=== PATIENT | male | born 1945 ===

== ENCOUNTER 2024-05-15 17:28 | Inpatient (IN) | payer MEDICARE, MEDICAID ==
[~2024-05-15] VITALS: Ht 154.9 cm; Wt 95.8 kg
[2024-05-15 17:53] LABS: BASOPHILS % (AUTO) 0.5 % (0.0-2.0); EOSINOPHILS % (AUTO) 1.4 % (1.0-6.0); HEMATOCRIT 43.1 % (41-53); HEMOGLOBIN 14.1 g/dL (13.5-17.5); LYMPHOCYTES % (AUTO) 16.3 % (22.0-44.0); MEAN CORPUSCULAR HEMOGLOBIN 28.9 pg (26.0-34.0); MEAN CORPUSCULAR HGB CONC 32.6 G/dL (31.0-37.0); MEAN CORPUSCULAR VOLUME 88 fL (80-100); MONOCYTES # (AUTO) 0.5 K/uL (0.1-1.0); MONOCYTES % (AUTO) 8.5 % (2.0-9.0); NEUTROPHILS # (AUTO) 4.6 K/uL (1.8-7.7); NEUTROPHILS % (AUTO) 73.3 % (40.0-70.0); PLATELET COUNT (AUTO) 182 K/uL (150-450); RED BLOOD CELL COUNT(AUTO) 4.87 MIL/uL (4.50-5.90); RED CELL DISTRIBUTION WIDTH 17.5 % (11.5-14.5); WHITE BLOOD COUNT (AUTO) 6.3 K/uL (4.5-11.0)
[2024-05-15] MEDS ORDERED: OMEP20 PO (18:03)
[2024-05-15] MEDS ORDERED: FLUO-342 PO (18:03)
[2024-05-15] MEDS ORDERED: NYST30CR9 TP (18:03)
[2024-05-15] MEDS ORDERED: SODI100067 PO (18:03)
[2024-05-15] MEDS ORDERED: SPIR-37 PO (18:03)
[2024-05-15] MEDS ORDERED: DEXT38GE12 PO (18:03)
[2024-05-15] MEDS ORDERED: FLUT1BLS12 IH (18:03)
[2024-05-15] MEDS ORDERED: TAMS0.4C94 PO (18:03)
[2024-05-15] MEDS ORDERED: TIOT185 IH (18:03)
[2024-05-15] MEDS ORDERED: NA P133E4 PR (18:03)
[2024-05-15] MEDS ORDERED: METF-1211 PO (18:03)
[2024-05-15 18:09] LABS: ANION GAP 2 mmol/L (8-16); CARBON DIOXIDE 34 mmol/L (22-29); CHLORIDE 98 mmol/L (98-107); CREATININE 1.48 mg/dL (0.60-1.30); GLOMERULAR FILTR. RATE CALC 46 mL/min (>60); GLUCOSE,RANDOM 119 mg/dL (70-110); POTASSIUM 4.8 mmol/L (3.5-5.1); SODIUM SERUM 134 mmol/L (136-145); UREA NITROGEN, BLOOD 38 mg/dL (7-18)
[2024-05-15 18:14] LABS: ALCOHOL, BLOOD (SERUM) < 3 mg/dL (0-10)
[2024-05-15 18:40] LABS: CALCIUM, TOTAL 9.1 mg/dL (8.8-10.5)
[2024-05-15 19:49] LABS: APPEARANCE,URINE CLEAR (CLEAR); BILIRUBIN,URINE NEGATIVE (NEGATIVE); COLOR,URINE LIGHT YELLOW (YELLOW); GLUCOSE, URINE (UA) NEGATIVE (NEGATIVE); KETONES,URINE NEGATIVE (NEGATIVE); LEUKOCYTE ESTERASE ,URINE NEGATIVE (NEGATIVE); NITRATE,URINE NEGATIVE (NEGATIVE); OCCULT BLOOD,URINE NEGATIVE (NEGATIVE); PROTEIN,URINE NEGATIVE (NEGATIVE); SPECIFIC GRAVITIY, URINE 1.014 (1.003-1.030); UROBILINOGEN,URINE <=1.0 mg/dL (<=1.0)
[2024-05-15 19:55] LABS: AMPHET/METH SCREEN,URINE NEGATIVE (NEGATIVE); BARBITURATE SCREEN, URINE NEGATIVE (NEGATIVE); BENZODIAZEPINES SCREEN,URINE NEGATIVE (NEGATIVE); CANNABINOID SCREEN,URINE NEGATIVE (NEGATIVE); COCAINE SCREEN,URINE NEGATIVE (NEGATIVE); METHADONE SCREEN, URINE NEGATIVE (NEGATIVE); OPIATE SCREEN,URINE NEGATIVE (NEGATIVE); PHENCYCLIDINE SCREEN,URINE NEGATIVE (NEGATIVE)
[2024-05-15 20:01] LABS: ALCOHOL, URINE DRUG SCREEN NEGATIVE (NEGATIVE)
[2024-05-15 21:06] LABS: GLUCOMETER DEV NAME(LOC) ER.7; GLUCOSE,POINT OF CARE 123 MG/DL (70-110)
[2024-05-15] MEDS: LORazepam 2 MG TABLET PO ONE (23:18)
[2024-05-16 00:10] LABS: COVID AG,FIA SOURCE NASAL SWAB
[2024-05-16 00:16] LABS: SARS-COV2 (COVID) ANTIGEN,FIA Negative (Negative)
[2024-05-16 04:30] VITALS: BP 103/63; PULSE 71; RESP 17; TEMP 97.9; O2SAT 99
[2024-05-16] MEDS ORDERED: NYSTATIN 15 GM POWDER BOTTLE TP PRN (07:15)
[2024-05-16 08:49] VITALS: BP 87/59; PULSE 70; RESP 18; TEMP 97.1; O2SAT 94
[2024-05-16] MEDS ORDERED: NICOTINE 14 MG/24 HOUR PATCH TD PRN (14:45)
[2024-05-16] MEDS ORDERED: DEXTROSE 50%-WATER 25 GM/50 ML SYRINGE IVP PRN (14:45)
[2024-05-16] MEDS ORDERED: LOPERAMIDE HCL 2 MG CAPSULE PO PRN (14:45)
[2024-05-16] MEDS ORDERED: MAG HYDROX/ALUMINUM HYD/SIMETH ES 30 ML SUSPENSION UDCUP PO PRN (14:45)
[2024-05-16] MEDS ORDERED: GuaiFENesin/D-METHORPHAN [SUGAR-FREE] 200-20MG/10 ML SYRUP UDCUP PO PRN (14:45)
[2024-05-16] MEDS ORDERED: PETROLATUM,WHITE 28 GM JELLY TP PRN (14:45)
[2024-05-16] MEDS ORDERED: CloNIDine HCL 0.1 MG TABLET PO PRN (14:45)
[2024-05-16] MEDS ORDERED: ONDANSETRON 4 MG TABLET PO PRN (14:45)
[2024-05-16] MEDS ORDERED: MAGNESIUM HYDROXIDE SUSPENSION 30 ML UDCUP PO PRN (14:45)
[2024-05-16] MEDS ORDERED: DOCUSATE SODIUM 100 MG CAPSULE PO PRN (14:45)
[2024-05-16] MEDS ORDERED: ALBUTEROL SULFATE HFA 90 MCG/PUFF 8 GM INHALER IH PRN (14:45)
[2024-05-16] MEDS: FLUoxetine HCL 20 MG CAPSULE PO SCH (16:34)
[2024-05-16] MEDS: SPIRONOLACTONE 25 MG TABLET PO SCH (16:35)
[2024-05-16] MEDS: INSULIN LISPRO 100 UNITS/ML SQ PRN (18:06)
[2024-05-16 18:41] LABS: GLUCOMETER DEV NAME(LOC) 3EX.2; GLUCOSE,POINT OF CARE 155 MG/DL (70-110)
[2024-05-16 21:11] LABS: GLUCOMETER DEV NAME(LOC) 3EX.2; GLUCOSE,POINT OF CARE 150 MG/DL (70-110)
[2024-05-16] MEDS: LORazepam 2 MG TABLET PO PRN (21:41)
[2024-05-17 06:30] LABS: GLUCOMETER DEV NAME(LOC) 3EX.2; GLUCOSE,POINT OF CARE 136 MG/DL (70-110)
[2024-05-17 11:41] LABS: HEMOGLOBIN A1C 6.1 % (3.8-5.6)
[2024-05-17 12:02] LABS: ANION GAP 3 mmol/L (8-16); CALCIUM, TOTAL 8.8 mg/dL (8.8-10.5); CARBON DIOXIDE 29 mmol/L (22-29); CHLORIDE 104 mmol/L (98-107); CHOL/HDL RATIO 2.8 (4.2-7.3); CHOLESTEROL 130 mg/dL (131-200); CREATININE 0.99 mg/dL (0.60-1.30); GLOMERULAR FILTR. RATE CALC > 60 mL/min (>60); GLUCOSE,RANDOM 111 mg/dL (70-110); HDL CHOLESTEROL 46 mg/dL (40-60); LDL CHOL (CALC.) 55 mg/dL (0-130); POTASSIUM 3.9 mmol/L (3.5-5.1); SODIUM SERUM 136 mmol/L (136-145); THYROID STIMULATING HORMONE 3.55 uIU/mL (0.36-3.74); TRIGLYCERIDES 143 mg/dL (15-150); UREA NITROGEN, BLOOD 22 mg/dL (7-18)
[2024-05-17] MEDS: TIOTROPIUM BROMIDE 18 MCG/INH HANDIHALER [5] IH SCH (12:04)
[2024-05-17] MEDS: TAMSULOSIN HCL 0.4 MG CAPSULE PO SCH (12:05)
[2024-05-17 12:16] LABS: GLUCOMETER DEV NAME(LOC) 3EX.2; GLUCOSE,POINT OF CARE 157 MG/DL (70-110)
[2024-05-17 17:09] LABS: APPEARANCE,URINE CLEAR (CLEAR); BILIRUBIN,URINE NEGATIVE (NEGATIVE); COLOR,URINE LIGHT YELLOW (YELLOW); GLUCOSE, URINE (UA) NEGATIVE (NEGATIVE); KETONES,URINE NEGATIVE (NEGATIVE); LEUKOCYTE ESTERASE ,URINE NEGATIVE (NEGATIVE); NITRATE,URINE NEGATIVE (NEGATIVE); OCCULT BLOOD,URINE NEGATIVE (NEGATIVE); PROTEIN,URINE NEGATIVE (NEGATIVE); SPECIFIC GRAVITIY, URINE 1.023 (1.003-1.030); UROBILINOGEN,URINE <=1.0 mg/dL (<=1.0)
[2024-05-17 17:17] LABS: ALCOHOL, URINE DRUG SCREEN NEGATIVE (NEGATIVE); AMPHET/METH SCREEN,URINE NEGATIVE (NEGATIVE); BARBITURATE SCREEN, URINE NEGATIVE (NEGATIVE); BENZODIAZEPINES SCREEN,URINE NEGATIVE (NEGATIVE); CANNABINOID SCREEN,URINE NEGATIVE (NEGATIVE); COCAINE SCREEN,URINE NEGATIVE (NEGATIVE); METHADONE SCREEN, URINE NEGATIVE (NEGATIVE); OPIATE SCREEN,URINE NEGATIVE (NEGATIVE); PHENCYCLIDINE SCREEN,URINE NEGATIVE (NEGATIVE)
[2024-05-17 17:51] LABS: GLUCOMETER DEV NAME(LOC) 3EX.2; GLUCOSE,POINT OF CARE 103 MG/DL (70-110)
[2024-05-17] MEDS: ZOLPIDEM TARTRATE 10 MG TABLET PO PRN (23:28)
[2024-05-18 05:56] LABS: GLUCOMETER DEV NAME(LOC) 3E.I 2; GLUCOSE,POINT OF CARE 178 MG/DL (70-110)
[2024-05-18 11:51] LABS: GLUCOMETER DEV NAME(LOC) 3E.I 2; GLUCOSE,POINT OF CARE 120 MG/DL (70-110)
[2024-05-18 17:06] LABS: GLUCOMETER DEV NAME(LOC) 3E.I 2; GLUCOSE,POINT OF CARE 110 MG/DL (70-110)
[2024-05-19 08:00] VITALS: RESP 18
[2024-05-19 20:26] VITALS: RESP 18
[2024-05-20 06:31] LABS: GLUCOMETER DEV NAME(LOC) 3EX.2; GLUCOSE,POINT OF CARE 100 MG/DL (70-110)
[2024-05-20 08:22] VITALS: BP 121/79; PULSE 69; RESP 16; TEMP 97.6; O2SAT 96
[2024-05-20 20:27] VITALS: BP 136/66; PULSE 75; RESP 17; TEMP 97.7; O2SAT 98
[2024-05-21 08:00] VITALS: BP 145/80; PULSE 72; RESP 18; TEMP 97.4; O2SAT 96
[2024-05-21] MEDS: QUEtiapine FUMARATE 25 MG TABLET PO SCH (16:41)
[2024-05-21 21:52] VITALS: BP 111/64; PULSE 80; RESP 18; TEMP 97.5; O2SAT 95
[2024-05-22] MEDS: TIOTROPIUM BROMIDE 18 MCG/INH HANDIHALER [5] IH SCH (09:00)
[2024-05-22 09:50] VITALS: BP 90/54; PULSE 70; RESP 18; TEMP 97.9; O2SAT 96
[2024-05-22 17:06] LABS: GLUCOMETER DEV NAME(LOC) 3EX.2; GLUCOSE,POINT OF CARE 151 MG/DL (70-110)
[2024-05-22 23:17] VITALS: BP 107/50; PULSE 70; RESP 18; TEMP 97.8; O2SAT 97
[2024-05-23 09:32] VITALS: BP 119/57; PULSE 72; RESP 19; TEMP 98; O2SAT 96
[2024-05-23 17:46] LABS: GLUCOMETER DEV NAME(LOC) 3E.C; GLUCOSE,POINT OF CARE 163 MG/DL (70-110)
[2024-05-23 22:03] VITALS: BP 117/70; PULSE 69; RESP 18; TEMP 97.9; O2SAT 96
[2024-05-24] MEDS: HALOPERIDOL 5 MG TABLET PO PRN (02:43)
[2024-05-24 09:40] VITALS: BP 141/85; PULSE 70; RESP 18; TEMP 97.8; O2SAT 96
[2024-05-24 12:11] LABS: GLUCOMETER DEV NAME(LOC) 3EX.2; GLUCOSE,POINT OF CARE 101 MG/DL (70-110)
[2024-05-24 17:11] LABS: GLUCOMETER DEV NAME(LOC) 3EX.2; GLUCOSE,POINT OF CARE 116 MG/DL (70-110)
[2024-05-24 21:41] LABS: GLUCOMETER DEV NAME(LOC) 3EX.2; GLUCOSE,POINT OF CARE 106 MG/DL (70-110)
[2024-05-24 22:47] VITALS: RESP 18
[2024-05-25 10:59] VITALS: BP 149/100; PULSE 70; RESP 18; TEMP 97; O2SAT 96
[2024-05-25 11:40] LABS: GLUCOMETER DEV NAME(LOC) 3EX.2; GLUCOSE,POINT OF CARE 106 MG/DL (70-110)
[2024-05-25 23:47] VITALS: BP 140/65; PULSE 71; RESP 18; TEMP 97.9; O2SAT 96
[2024-05-26 07:09] LABS: ANION GAP 7 mmol/L (8-16); CALCIUM, TOTAL 8.6 mg/dL (8.8-10.5); CARBON DIOXIDE 30 mmol/L (22-29); CHLORIDE 107 mmol/L (98-107); CREATININE 1.09 mg/dL (0.60-1.30); GLOMERULAR FILTR. RATE CALC > 60 mL/min (>60); GLUCOSE,RANDOM 99 mg/dL (70-110); POTASSIUM 4.3 mmol/L (3.5-5.1); SODIUM SERUM 144 mmol/L (136-145); UREA NITROGEN, BLOOD 27 mg/dL (7-18)
[2024-05-26 09:00] VITALS: BP 126/67; PULSE 72; RESP 18; TEMP 97.1; O2SAT 97
[2024-05-26 11:35] LABS: GLUCOMETER DEV NAME(LOC) 3EX.2; GLUCOSE,POINT OF CARE 90 MG/DL (70-110)
[2024-05-26 17:01] LABS: GLUCOMETER DEV NAME(LOC) 3EX.2; GLUCOSE,POINT OF CARE 93 MG/DL (70-110)
[2024-05-26 21:25] VITALS: BP 120/70; PULSE 81; RESP 19; TEMP 98; O2SAT 98
[2024-05-26] MEDS: ACETAMINOPHEN 325 MG TABLET PO PRN (21:32)
[2024-05-26 22:23] VITALS: BP 115/73; PULSE 70; RESP 17; TEMP 97.8; O2SAT 97
[2024-05-26 22:32] VITALS: RESP 18
[2024-05-27 08:00] VITALS: BP 123/65; PULSE 71; RESP 18; TEMP 97.6; O2SAT 97
[2024-05-27 12:01] LABS: GLUCOMETER DEV NAME(LOC) 3EX.2; GLUCOSE,POINT OF CARE 134 MG/DL (70-110)
[2024-05-27 17:06] VITALS: BP 115/65; PULSE 72; RESP 18; O2SAT 98
[2024-05-27 17:35] LABS: GLUCOMETER DEV NAME(LOC) 3EX.2; GLUCOSE,POINT OF CARE 104 MG/DL (70-110)
[2024-05-27 21:27] VITALS: BP 98/60; PULSE 72; RESP 18; TEMP 97; O2SAT 96
[2024-05-28 06:30] LABS: GLUCOMETER DEV NAME(LOC) 3EX.2; GLUCOSE,POINT OF CARE 118 MG/DL (70-110)
[2024-05-28 09:28] VITALS: BP 112/65; PULSE 70; RESP 17; TEMP 97.3; O2SAT 96
[2024-05-28 22:19] VITALS: BP 115/60; PULSE 70; RESP 18; TEMP 97.9; O2SAT 99
[2024-05-29 10:13] VITALS: BP 101/50; PULSE 72; RESP 18; TEMP 96.7; O2SAT 95
[2024-05-29] MEDS ORDERED: QUET25TA PO (13:19)
== END 2024-05-29 19:24 | DRG 885 ==
LOC: EMS 17:28 → UNDOADMIN 05-16 03:30 → 3EX 05-16 03:30
PROVIDERS: ADMIT Psychiatry & Neurology Child & Adolescent Psychiatry; ATTEND Psychiatry & Neurology Child & Adolescent Psychiatry
PROC: GZ52ZZZ Individual Psychotherapy, Cognitive (ICD-10-PCS; principal; 2024-05-16)
PROC: GZHZZZZ Group Psychotherapy (ICD-10-PCS; 2024-05-16)
PROC: GZ56ZZZ Individual Psychotherapy, Supportive (ICD-10-PCS; 2024-05-16)
DX: F33.2 Major depressive disorder, recurrent severe without psychotic features (principal); N17.9 Acute kidney failure, unspecified; E87.1 Hypo-osmolality and hyponatremia; F03.93 Unspecified dementia, unspecified severity, with mood disturbance; Z20.822 Contact with and (suspected) exposure to COVID-19; E11.9 Type 2 diabetes mellitus without complications; E78.5 Hyperlipidemia, unspecified; I10 Essential (primary) hypertension; F41.9 Anxiety disorder, unspecified; J45.909 Unspecified asthma, uncomplicated; E66.9 Obesity, unspecified; N40.0 Benign prostatic hyperplasia without lower urinary tract symptoms; R32 Unspecified urinary incontinence; Z79.899 Other long term (current) drug therapy; Z95.0 Presence of cardiac pacemaker; Z68.39 Body mass index [BMI] 39.0-39.9, adult
CPT/HCPCS: 80048; 80061; 80307; 81003; 82962; 83036; 84443; 85025; 87081; 87481; 99285; G0378; G0480